=== PATIENT | male | born 1960 | race Caucasian/White ===

== ENCOUNTER 2021-04-18 12:14 | Emergency (ER) | payer OTHER ==
[2021-04-18 14:04] LABS: HEMOGLOBIN 17.7 gm/dl (14.0-17.5); RED BLOOD COUNT 5.37 M/UL (4.20-5.50); WHITE BLOOD COUNT 9.6 K/UL (4.5-11.0)
[2021-04-18 14:28] LABS: BUN/CREATININE RATIO 14 (0-10)
== END 2021-04-18 18:55 | disposition home or self-care (01) ==
LOC: ER1 12:14
PROVIDERS: Physician Assistant
DX: R10.13 Epigastric pain (principal); F17.210 Nicotine dependence, cigarettes, uncomplicated; I10 Essential (primary) hypertension; Z88.5 Allergy status to narcotic agent
CPT/HCPCS: 71045; 80053; 81001; 82150; 82550; 82553; 83690; 83874; 84484; 85025; 93005; 99284; Q9967